=== PATIENT | male | born 1965 | race Two or more races ===

== ENCOUNTER 2019-02-18 13:54 | Emergency (ER) | payer OTHER ==
[~2019-02-18] VITALS: Ht 182.9 cm; Wt 80.3 kg
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
[2019-02-18 14:49] VITALS: BP 134/80
== END 2019-02-18 14:45 | disposition home or self-care (01) ==
LOC: ER 13:56
DX: M54.5 Low back pain (principal); V09.9XXA Pedestrian injured in unspecified transport accident, initial encounter; Y93.89 Activity, other specified; Y92.89 Other specified places as the place of occurrence of the external cause; Y99.8 Other external cause status

== ENCOUNTER 2019-02-24 19:35 | Emergency (ER) | payer OTHER ==
[~2019-02-24] VITALS: Ht 172.7 cm; Wt 80.7 kg
--- NOTE | 2019-02-24 19:45 | NUR ---
PT [facility]. C/O "LOWER BACK PAIN. RADIATING UP MY SPINE. GIVING ME A HEADACHE". PT AAOX4, VSS, BREATHING EVEN AND UNLABORED ON RA W/ NAD NOTED. WILL MONITOR
[2019-02-24] MEDS ORDERED: ACETAMINOPHEN 325 MG TABLET PO ONE (20:30)
[2019-02-24] MEDS ORDERED: ACETAMINOPHEN 325 MG TABLET ONE (21:47)
--- NOTE | 2019-02-24 23:13 | NUR ---
Patient given written and verbal discharge instructions. Patient verbalizes understanding of instructions. Patient is ambulatory with steady gait. Refuses offer of senior living placement. Patient given list of available shelters in surrounding area.
[2019-02-24 23:15] VITALS: BP 123/81
== END 2019-02-24 23:15 | disposition home or self-care (01) ==
LOC: ER 19:36
DX: S09.8XXA Other specified injuries of head, initial encounter (principal); M54.2 Cervicalgia; M54.5 Low back pain; R51 Headache; Z59.0 Homelessness; V09.9XXA Pedestrian injured in unspecified transport accident, initial encounter; Y93.89 Activity, other specified; Y92.488 Other paved roadways as the place of occurrence of the external cause; Y99.8 Other external cause status
CPT/HCPCS: 70450-TC; 72040-TC; 72070-TC; 72100-TC

== ENCOUNTER 2020-09-07 17:25 | Emergency (ER) | payer MEDICAID, OTHER ==
[~2020-09-07] VITALS: Ht 175.3 cm; Wt 86.2 kg
--- NOTE | 2020-09-07 17:25 | NUR ---
PT [facility] [address] C/O L HAND PAIN FOR 2 WEEKS. PT IS AAOX4, NOT IN RESPIRATORY DISTRESS, V/S STABLE, KEPT RESTED AND COMFORTABLE. WILL CONTINUE TO MONITOR.
[2020-09-07 17:34] VITALS: BP 160/100
--- NOTE | 2020-09-07 17:41 | NUR ---
SEEN AND EXAMINED BY .
--- NOTE | 2020-09-07 17:57 | NUR ---
ER PHLEB AT BEDSIDE FOR BLOOD DRAW.
[2020-09-07 18:08] LABS: BASOPHILS # (AUTO) 0.1 K/uL (0.0-0.2); BASOPHILS % (AUTO) 0.8 % (0.0-2.0); EOSINOPHILS % (AUTO) 9.3 % (0.0-6.0); HEMATOCRIT 30 % (39-51); HEMOGLOBIN 9.9 g/dL (13.5-17.5); LYMPHOCYTES # (AUTO) 1.6 K/uL (0.8-4.8); LYMPHOCYTES % (AUTO) 24.1 % (20.0-44.0); MEAN CORPUSCULAR HGB CONC 33 g/dl (31.0-36.0); MEAN CORPUSCULAR VOLUME 87 fL (80-96); MONOCYTES # (AUTO) 0.7 K/uL (0.1-1.30); MONOCYTES % (AUTO) 10.5 % (2.0-12.0); NEUTROPHILS # (AUTO) 3.7 K/uL (1.8-8.9); NEUTROPHILS % (AUTO) 55.3 % (43.0-81.0); PLATELET COUNT (AUTO) 292 K/uL (150-450); WHITE BLOOD COUNT (AUTO) 6.7 K/uL (4.3-11.0)
--- NOTE | 2020-09-07 18:10 | NUR ---
DATA ENTRY EMAIL PROCESSOR AT BEDSIDE FOR XRAY.
[2020-09-07 18:32] LABS: CALCIUM, SERUM 7.9 mg/dL (8.5-10.1); CARBON DIOXIDE 29 mmol/L (21-32); CHLORIDE 102 mmol/L (98-107); CREATININE 0.7 mg/dL (0.6-1.3); GLUCOSE 90 mg/dL (74-106); POTASSIUM 3.3 mmol/L (3.5-5.1); SODIUM SERUM 139 mmol/L (136-145); UREA NITROGEN, BLOOD 14 mg/dL (7-18)
--- NOTE | 2020-09-07 19:11 | NUR ---
Patient eloped from facility. ER MD notified.
== END 2020-09-07 19:12 | disposition left against medical advice (07) ==
LOC: ER 17:44
DX: I50.9 Heart failure, unspecified (principal); M79.641 Pain in right hand; M79.642 Pain in left hand; Z59.0 Homelessness
CPT/HCPCS: 36415; 71045-TC; 80048-TC; 83880; 84484-TC; 85025-TC; 85730-TC